=== PATIENT | male | born 1970 | race Caucasian/White ===

== ENCOUNTER → 2020-04-19 | Day surgery (SDC) | payer OTHER ==
[2020-04-16 12:05] LABS: BASOPHILS % 0.5 % (0.0-1.0); EOSINOPHILS # (AUTO) 0.4 (0.0-0.4); EOSINOPHILS % 6.7 % (0.0-6.0); HEMATOCRIT 47.5 % (38.2-49.6); HEMOGLOBIN 16.2 g/dL (14.0-18.0); LYMPHOCYTES # (AUTO) 1.4 (1.0-3.2); MEAN CORPUSCULAR HEMOGLOBIN 28.1 pg (28-32); MEAN CORPUSCULAR HGB CONC 34.1 g/dL (31-35); MEAN CORPUSCULAR VOLUME 82.3 fL (81-99); MONOCYTES # (AUTO) 0.5 (0.2-0.8); MONOCYTES % 8.1 % (4.4-11.3); NEUTROPHILS # (AUTO) 4.1 (2.1-6.9); NEUTROPHILS % 62.2 % (38.7-80.0); PLATELET COUNT 205 x10e3/uL (140-360); RED BLOOD COUNT 5.77 x10e6/uL (4.3-5.7); RED CELL DISTRIBUTION WIDTH 12.5 % (11.7-14.4)
[2020-04-16 12:18] LABS: INR 0.88; PROTHROMBIN TIME 12.5 seconds (11.9-14.5)
[2020-04-16 12:25] LABS: ALANINE AMINOTRANSFERASE 62 IU/L (0-55); ALBUMIN 4.1 g/dL (3.5-5.0); ALBUMIN/GLOBULIN RATIO 1.1 (0.8-2.0); ALKALINE PHOSPHATASE 86 IU/L (40-150); ANION GAP 14.1 mmol/L (8-16); BLOOD UREA NITROGEN 16 mg/dL (7-26); BUN/CREATININE RATIO 13 (6-25); CALCIUM 9.8 mg/dL (8.4-10.2); CARBON DIOXIDE 24 mmol/L (22-29); CHLORIDE 103 mmol/L (98-107); CREATININE, SERUM 1.21 mg/dL (0.72-1.25); EST GLOMERULAR FILTRATION RATE > 60 ML/MIN (60-); GLUCOSE 253 mg/dL (74-118); POTASSIUM 4.1 mmol/L (3.5-5.1); SODIUM 137 mmol/L (136-145)
[~2020-04-19] VITALS: Ht 193 cm; Wt 116.1 kg
[~2020-04-19] MED LIST: DIOVAN160 MG PO; ELIQUIS2.5 MG PO; FENTANYL CITRATE/PF 100MCG/2 ML INJ ONE; HEPARIN SOD (PORCINE) 1000 UNIT/ML 30ML ONE; HEPARIN SOD/SOD CHLORIDE 2,000 ML ONE; IOPAMIDOL 370 MG/ML 200 ML INFUS..BTL INJ ONE; JARDIANCE10 MG PO; LIDOCAINE HCL 2% LOCAL 20 ML VIAL ONE; METFORMIN500 MG/5 M PO; MIDAZOLAM HCL 2 MG/2 ML VIAL ONE; NITROGLYCERIN/D5W 200 MCG/ML 250 ML ONE; SODIUM CHLORIDE 0.9% 1000ML 1,000 ML ONE; VERAPAMIL HCL 2.5 MG/ML 2 ML VIAL ONE
[2020-04-19 08:30] VITALS: BP 128/77
--- NOTE | 2020-04-19 08:30 | NUR ---
0830 am RECEIVING NOTE [employer] DEPT............................................................... Bedside report received from JAVIER Castellon. [id number]. Alert oriented and appropriate, PERRLA, respirations even and unlabored to room air. Pulses x4 extremities equal and strong. Pedal pulses PT/DP X4 and marked. Cap fill brisk < 3 sec. RT Trband site intact. Skin warm and dry integrity appears D/I IV 20g to left presents healthy w/o s/s of infiltration or complaint. Abdomen soft and supple. pt offered toileting, denies need to urinate or defecate. No personal affects with patient. Family at bedside. Pt and family verbalizes understanding of POC. Currently w/o complaint of pain or need. josh/rn
[2020-04-19 08:45] VITALS: BP 128/80
[2020-04-19 09:00] VITALS: BP 115/60
[2020-04-19 09:15] VITALS: BP 116/64
--- NOTE | 2020-04-19 09:25 | NUR ---
0925am RADIAL/PEDAL COMPRESSION REMOVAL NOTE: Initial Cuff volume 12 cc 0925am -2cc Removed No hematoma/bleeding noted with normal neurovascular function. 0945am -5cc Removed No hematoma/ bleeding noted with normal neurovascular function. 1000am -5cc Removed No hematoma/bleeding noted with normal neurovascular function. Air removal completed. Stasis achieved sterile 2x2,Tegaderm, Coban dressing No hematoma, bleeding noted with normal neurovascular function. Wrist splint in place. Pt instructed on POC. Ds/Rn
[2020-04-19 09:30] VITALS: BP 115/74
[2020-04-19 10:00] VITALS: BP 116/64
--- NOTE | 2020-04-19 10:00 | NUR ---
1000 am [employer] DISCHARGE NURSING NOTE Pt meets DC criteria. Rt TR band assessed for s/s of complication and presence of hematoma. Skin warm, dry, no discolor, and pulses present. IV removed from left arm. Distal tip appears intact. VS WNL. Pt denies pain, sob, or need at this time. Family at XXXXX. Review of discharge paperwork and follow up instructions. verbalized understanding. Pt to wheelchair and transported to front of hospital. Transferred to private vehicle under own strength w/o incident with DC paperwork in hand. - josh/rn
--- NOTE | 2020-05-03 12:57 | Operative Report ---
DATE OF PROCEDURE: 04/19/2020 SURGEON: Avinash Mccain DO PROCEDURES PERFORMED: 1. Conscious sedation, 26 minutes. 2. Selective coronary angiography x2. 3. Left heart catheterization. PREPROCEDURE DIAGNOSIS: Abnormal stress test. POSTPROCEDURE DIAGNOSIS: Abnormal stress test. ESTIMATED BLOOD LOSS: Less than 20 mL. SPECIMENS REMOVED: None. PROCEDURE IN DETAIL: After informed consent was obtained, the patient was brought to the cardiac catheterization laboratory in a fasting and nonsedated state. Bilateral groins were prepped and draped in usual sterile fashion. A 2% lidocaine was infiltrated over the right anterior wrist for local anesthesia. Using a micropuncture needle, the right radial artery was accessed via modified Seldinger technique and a 5/6 Slender sheath was placed. The patient received fentanyl and midazolam administered by the label fuser tender nurse and his neurologic and physiologic status was monitored by myself and label fuser tender staff for 26 minutes. Diagnostic coronary angiography and left heart catheterization was performed using a TIG-4 catheter. The patient tolerated the procedure well with no immediate complications and was transferred back to his room in stable condition. PROCEDURAL FINDINGS: 1. 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 There is no significant proximal disease of the aorta. 2. The left anterior descending coronary artery is patent with no significant obstructive disease. 3. The left circumflex coronary artery provides two obtuse marginal vessels with luminal irregularities. 4. The right coronary artery is a large dominant vessel with no significant coronary artery disease. 5. Left ventricular end-diastolic pressure was 10 mmHg with no aortic valve gradient present upon pullback. IMPRESSION: Abnormal stress test, likely artifact due to no significant coronary artery disease being found. RECOMMENDATIONS: Medical management. Avinash Mccain DO BM/MODL /[id number]
== END | disposition home or self-care (01) ==
LOC: CATH LAB 06:41
PROVIDERS: ATTEND Internal Medicine Cardiovascular Disease
DX: I25.10 Atherosclerotic heart disease of native coronary artery without angina pectoris (principal); R94.39 Abnormal result of other cardiovascular function study; I48.91 Unspecified atrial fibrillation; R00.2 Palpitations; R07.2 Precordial pain; E13.69 Other specified diabetes mellitus with other specified complication; Z01.812 Encounter for preprocedural laboratory examination; Z11.59 Encounter for screening for other viral diseases; Z79.84 Long term (current) use of oral hypoglycemic drugs; Z79.02 Long term (current) use of antithrombotics/antiplatelets; Z68.41 Body mass index [BMI] 40.0-44.9, adult; Z82.49 Family history of ischemic heart disease and other diseases of the circulatory system; Z83.3 Family history of diabetes mellitus
CPT/HCPCS: 36415; 80053; 85025; 85610; 87635; 93458; C1769; C1887; C1894; J1644; J2001; J2250; J3010; J7030; Q9967; 99152; U0002